=== PATIENT | female | born 1980 | race Caucasian/White ===

== ENCOUNTER 2017-07-30 10:57 | Emergency (ER) | payer MEDICARE ==
[~2017-07-30] VITALS: Ht 165.1 cm; Wt 81.7 kg
[~2017-07-30 10:57] MED LIST: ACETAMINOPHEN-1 EAC1 PO; BERINERT500 UNI1 IV; CARAFATE 1 GM TA1 GM PO; CARAFATE 11 GM/10 M1 GT; CINRYZE500 UNIT IV; CIPRO500 M1 PO; CITRATE OF MAG300 ML PO; CYCLOBENZAPRINE5 MG PO; DILAUDID1 MG/1 ML IV; FIRAZYR30 MG/3 ML SQ; FLAGYL500 MG PO; FLEXERIL PO; HYDROCODONE-AP1 EAC6 PO; IBUPROFEN 800800 MG PO; LEVAQUIN 750 M750 MG PO; MOBIC7.5 MG PO; NORCO 5-325 TA1 EAC1 PO; NORCO 5-325 TA1 EACH PO; ONDANSETRON4 MG/2 ML IV; PEPCID20 MG IVPB; PEPCID20 MG PO; PREVACID15 MG PO; ROBAXIN 750 MG750 M1 PO; ROBAXIN500 MG PO; SODIUM CHLORI1000 ML IV; UNICOMPLEX M TA1 TA1 PO; ZANTAC 150MG T150 MG PO; ZOFRAN ODT4 MG PO; [UNRECOGNIZED DRUG - OTHER] IV; [UNRECOGNIZED DRUG - OTHER] SQ
[2017-07-30 11:25] LABS: ABSOLUTE BASOPHILS 0.1 thou/uL (0.0-0.2); ABSOLUTE EOSINOPHILS 0.2 thou/uL (0.0-0.7); ABSOLUTE LYMPHOCYTES 1.8 thou/uL (0.8-5.3); ABSOLUTE MONOCYTES 0.5 thou/uL (0.0-1.2); ABSOLUTE NEUTROPHILS 4.7 thou/uL (1.6-8.1); BASOPHILS 0.8 %; EOSINOPHILS 2.7 %; HEMATOCRIT 39.3 % (37.0-47.0); HEMOGLOBIN 13.2 gm/dL (12.0-15.0); LYMPHOCYTES 25.2 %; MCH 28.5 pg (26.0-34.0); MCHC 33.6 g/dL (28.0-37.0); MCV 84.8 fL (80.0-100.0); MONOCYTES 6.9 %; MPV 8.7 fl. (7.2-11.1); NUCLEATED RBCS 0 /100WBC; PLATELET COUNT* 255 thou/uL (150-400); POLYS 64.4 %; RBC 4.64 mil/uL (4.20-5.00); WBC 7.3 thou/uL (4.0-11.0)
[2017-07-30 11:33] LABS: CALCIUM 8.3 mg/dL (8.5-10.1); CREATININE 0.7 mg/dL (0.6-1.3); POTASSIUM 3.8 mmol/L (3.5-5.1)
[2017-07-30 11:37] LABS: ALBUMIN 3.3 g/dL (3.4-5.0); TOTAL BILIRUBIN 0.3 mg/dL (<0.1-1.0); TOTAL PROTEIN 7.4 g/dL (6.4-8.2)
[2017-07-30 11:41] LABS: INFLUENZA A ANTIGEN None Detected (None Detect); INFLUENZA B ANTIGEN None Detected (None Detect)
[2017-07-30] MEDS ORDERED: ZOFRAN ODT4 MG PO (12:30)
[2017-07-30 12:53] LABS: URINE BILIRUBIN NEGATIVE (Negative); URINE BLOOD NEGATIVE (Negative); URINE CLARITY CLEAR; URINE COLOR YELLOW; URINE GLUCOSE-RANDOM NEGATIVE (Negative); URINE KETONES NEGATIVE (Negative); URINE LEUKOCYTES-REFLEX NEGATIVE (Negative); URINE NITRITE-REFLEX NEGATIVE (Negative); URINE PROTEIN NEGATIVE (Negative); URINE UROBILINOGEN 0.2 E.U./dl (0.2-1.0)
[2017-07-30 13:28] VITALS: BP 100/60
== END 2017-07-30 13:30 | disposition home or self-care (01) ==
LOC: M.ERS 10:57
PROVIDERS: Physician Assistant
DX: B34.9 Viral infection, unspecified (principal); Z90.49 Acquired absence of other specified parts of digestive tract; Z90.89 Acquired absence of other organs; Z91.041 Radiographic dye allergy status; Z88.2 Allergy status to sulfonamides; Z88.8 Allergy status to other drugs, medicaments and biological substances

== ENCOUNTER 2017-08-09 16:14 | Emergency (ER) | payer MEDICARE ==
[~2017-08-09] VITALS: Ht 165.1 cm; Wt 81.7 kg
[2017-08-09 16:41] LABS: URINE BILIRUBIN NEGATIVE (Negative); URINE BLOOD TRACE (Negative); URINE CLARITY CLEAR; URINE COLOR YELLOW; URINE GLUCOSE-RANDOM NEGATIVE (Negative); URINE KETONES TRACE (Negative); URINE LEUKOCYTES-REFLEX NEGATIVE (Negative); URINE NITRITE-REFLEX NEGATIVE (Negative); URINE PROTEIN NEGATIVE (Negative); URINE SPECIFIC GRAVITY >= 1.030 (1.005-1.030); URINE UROBILINOGEN 0.2 E.U./dl (0.2-1.0)
[2017-08-09 17:27] LABS: ABSOLUTE BASOPHILS 0.1 thou/uL (0.0-0.2); ABSOLUTE EOSINOPHILS 0.1 thou/uL (0.0-0.7); ABSOLUTE LYMPHOCYTES 2.3 thou/uL (0.8-5.3); ABSOLUTE MONOCYTES 0.5 thou/uL (0.0-1.2); ABSOLUTE NEUTROPHILS 7.2 thou/uL (1.6-8.1); BASOPHILS 0.8 %; EOSINOPHILS 0.6 %; HEMATOCRIT 38.7 % (37.0-47.0); LYMPHOCYTES 22.8 %; MCH 28.3 pg (26.0-34.0); MCHC 33.6 g/dL (28.0-37.0); MCV 84.4 fL (80.0-100.0); MONOCYTES 5.2 %; MPV 8.8 fl. (7.2-11.1); NUCLEATED RBCS 0 /100WBC; PLATELET COUNT* 259 thou/uL (150-400); POLYS 70.6 %; RBC 4.58 mil/uL (4.20-5.00); RDW-CV 13.9 % (10.5-14.5); WBC 10.2 thou/uL (4.0-11.0)
[2017-08-09 17:32] LABS: CREATININE 0.7 mg/dL (0.6-1.3)
[2017-08-09 17:33] LABS: POTASSIUM 2.9 mmol/L (3.5-5.1)
[2017-08-09 17:36] LABS: ALBUMIN 3.1 g/dL (3.4-5.0); TOTAL BILIRUBIN 0.4 mg/dL (<0.1-1.0); TOTAL PROTEIN 6.8 g/dL (6.4-8.2)
[2017-08-09] MEDS ORDERED: POTASSIUM20 PO (18:15)
[2017-08-09 18:22] VITALS: BP 114/67
== END 2017-08-09 18:22 | disposition home or self-care (01) ==
LOC: M.ERS 16:14
PROVIDERS: Physician Assistant
DX: R10.2 Pelvic and perineal pain (principal); R31.9 Hematuria, unspecified; E87.6 Hypokalemia; Z98.890 Other specified postprocedural states; Z91.040 Latex allergy status; Z88.2 Allergy status to sulfonamides; Z88.8 Allergy status to other drugs, medicaments and biological substances

== ENCOUNTER 2017-09-11 17:18 | Emergency (ER) | payer MEDICARE ==
[~2017-09-11] VITALS: Ht 165.1 cm; Wt 88.5 kg
[~2017-09-11 17:18] MED LIST changes: +POTASSIUM20 PO
[2017-09-11 18:19] LABS: URINE BILIRUBIN NEGATIVE (Negative); URINE BLOOD NEGATIVE (Negative); URINE CLARITY CLEAR; URINE COLOR YELLOW; URINE GLUCOSE-RANDOM NEGATIVE (Negative); URINE KETONES NEGATIVE (Negative); URINE LEUKOCYTES-REFLEX NEGATIVE (Negative); URINE NITRITE-REFLEX NEGATIVE (Negative); URINE PROTEIN NEGATIVE (Negative); URINE SPECIFIC GRAVITY 1.015 (1.005-1.030); URINE UROBILINOGEN 0.2 E.U./dl (0.2-1.0)
[2017-09-11] MEDS ORDERED: NORFLEX100 MG PO (18:35)
[2017-09-11] MEDS ORDERED: NAPROSYN500 MG PO (18:35)
[2017-09-11 18:50] VITALS: BP 138/73
== END 2017-09-11 18:50 | disposition home or self-care (01) ==
LOC: M.ERS 17:18
PROVIDERS: Personal Emergency Response Attendant
DX: M54.42 Lumbago with sciatica, left side (principal); M54.41 Lumbago with sciatica, right side; Z91.040 Latex allergy status; Z88.2 Allergy status to sulfonamides; Z88.8 Allergy status to other drugs, medicaments and biological substances; Z98.890 Other specified postprocedural states

== ENCOUNTER 2017-11-05 05:30 | Emergency (ER) | payer MEDICARE ==
[~2017-11-05] VITALS: Ht 162.6 cm; Wt 81.6 kg
[~2017-11-05 05:30] MED LIST changes: +NAPROSYN500 MG PO; +NORFLEX100 MG PO
[2017-11-05 06:15] LABS: CALCIUM 8.5 mg/dL (8.5-10.1); CREATININE 0.9 mg/dL (0.6-1.3); POTASSIUM 3.6 mmol/L (3.5-5.1)
[2017-11-05 06:19] LABS: ABSOLUTE EOSINOPHILS 0.1 thou/uL (0.0-0.7); ABSOLUTE LYMPHOCYTES 2.1 thou/uL (0.8-5.3); ABSOLUTE MONOCYTES 0.6 thou/uL (0.0-1.2); BASOPHILS 0.3 %; EOSINOPHILS 0.9 %; HEMATOCRIT 41.9 % (37.0-47.0); HEMOGLOBIN 13.8 gm/dL (12.0-15.0); LYMPHOCYTES 17.6 %; MCHC 32.9 g/dL (28.0-37.0); MCV 85.1 fL (80.0-100.0); MONOCYTES 4.9 %; MPV 9.1 fl. (7.2-11.1); NUCLEATED RBCS 0 /100WBC; PLATELET COUNT* 293 thou/uL (150-400); POLYS 76.3 %; RBC 4.93 mil/uL (4.20-5.00); RDW-CV 14.4 % (10.5-14.5); WBC 11.8 thou/uL (4.0-11.0)
[2017-11-05 06:25] LABS: ALBUMIN 3.2 g/dL (3.4-5.0); TOTAL BILIRUBIN 0.4 mg/dL (<0.1-1.0)
[2017-11-05 09:00] VITALS: BP 122/73
== END 2017-11-05 09:00 | disposition short-term general hospital (02) ==
LOC: M.ERS 05:30
PROVIDERS: Emergency Medicine Emergency Medical Services
DX: D84.1 Defects in the complement system (principal); R10.84 Generalized abdominal pain; E66.01 Morbid (severe) obesity due to excess calories; Z90.49 Acquired absence of other specified parts of digestive tract; Z90.89 Acquired absence of other organs; Z91.040 Latex allergy status; Z88.2 Allergy status to sulfonamides; Z88.8 Allergy status to other drugs, medicaments and biological substances; Z68.30 Body mass index [BMI] 30.0-30.9, adult

== ENCOUNTER 2018-02-26 16:17 | Emergency (ER) | payer MEDICARE ==
[~2018-02-26] VITALS: Ht 165.1 cm; Wt 81.7 kg
[2018-02-26] MEDS ORDERED: [UNRECOGNIZED DRUG - OTHER] SUBQ (16:24)
[2018-02-26 16:52] LABS: ABSOLUTE EOSINOPHILS 0.1 thou/uL (0.0-0.7); ABSOLUTE LYMPHOCYTES 1.7 thou/uL (0.8-5.3); ABSOLUTE MONOCYTES 0.5 thou/uL (0.0-1.2); ABSOLUTE NEUTROPHILS 5.5 thou/uL (1.6-8.1); BASOPHILS 0.6 %; EOSINOPHILS 1.4 %; HEMATOCRIT 41.3 % (37.0-47.0); HEMOGLOBIN 13.7 gm/dL (12.0-15.0); LYMPHOCYTES 21.4 %; MCH 28.6 pg (26.0-34.0); MCHC 33.3 g/dL (28.0-37.0); MONOCYTES 6.1 %; MPV 8.9 fl. (7.2-11.1); NUCLEATED RBCS 0 /100WBC; PLATELET COUNT* 255 thou/uL (150-400); POLYS 70.5 %; RDW-CV 14.1 % (10.5-14.5); WBC 7.9 thou/uL (4.0-11.0)
[2018-02-26 17:00] LABS: ANION GAP 7 mmol/L (7-16); BUN 9 mg/dL (7-18); CALCIUM 8.4 mg/dL (8.5-10.1); CHLORIDE 104 mmol/L (98-107); CO2 28 mmol/L (21-32); CREATININE 0.8 mg/dL (0.6-1.3); GLUCOSE 96 mg/dL (70-99); POTASSIUM 3.5 mmol/L (3.5-5.1); SODIUM 139 mmol/L (136-145)
[2018-02-26 17:10] LABS: ALBUMIN 3.5 g/dL (3.4-5.0); ALKALINE PHOSPHATASE 94 U/L (46-116); LIPASE 150 U/L (73-393); NT-PRO BRAIN NAT PEPTIDE 39 pg/mL (<300); SGOT 17 U/L (15-37); SGPT 27 U/L (30-65); TOTAL BILIRUBIN 0.3 mg/dL (<0.1-1.0); TOTAL PROTEIN 7.4 g/dL (6.4-8.2); TROPONIN-I LEVEL <0.06 ng/mL (<0.06)
[2018-02-26 17:47] LABS: URINE BILIRUBIN NEGATIVE (Negative); URINE BLOOD 1+ (Negative); URINE CLARITY CLEAR; URINE COLOR YELLOW; URINE GLUCOSE-RANDOM NEGATIVE (Negative); URINE KETONES NEGATIVE (Negative); URINE LEUKOCYTES-REFLEX NEGATIVE (Negative); URINE NITRITE-REFLEX NEGATIVE (Negative); URINE PROTEIN NEGATIVE (Negative); URINE SPECIFIC GRAVITY 1.015 (1.005-1.030); URINE UROBILINOGEN 0.2 E.U./dl (0.2-1.0)
[2018-02-26 17:56] LABS: BACTERIA-REFLEX 1-9 Few /HPF (None Seen); CASTS None Seen /LPF (None Seen); CRYSTALS None Seen /LPF (None Seen); SQUAMOUS >10 Many /LPF (0-3); URINE RBC 3-10 Few /HPF (0-2); URINE WBC-REFLEX 0-5 Rare /HPF (0-5)
[2018-02-26 18:29] VITALS: BP 114/63
--- NOTE | 2018-02-27 14:50 | EKG ---
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
== END 2018-02-26 18:30 | disposition home or self-care (01) ==
LOC: M.ERS 16:17
PROVIDERS: Emergency Medicine
DX: R07.89 Other chest pain (principal); R50.9 Fever, unspecified; R53.1 Weakness; Z90.49 Acquired absence of other specified parts of digestive tract; Z91.040 Latex allergy status; Z88.2 Allergy status to sulfonamides; Z88.8 Allergy status to other drugs, medicaments and biological substances

== ENCOUNTER 2018-05-29 07:09 | Emergency (ER) | payer OTHER, MEDICARE ==
[~2018-05-29] VITALS: Ht 165.1 cm; Wt 81.7 kg
[~2018-05-29 07:09] MED LIST changes: +[UNRECOGNIZED DRUG - OTHER] SUBQ
[2018-05-29] MEDS ORDERED: TAKHZYRO300 MG/2 M SUBQ (07:18)
[2018-05-29] MEDS ORDERED: ZPAK PO (07:33)
[2018-05-29] MEDS ORDERED: PREDNISONE 20 M20 M1 PO (07:33)
[2018-05-29 07:40] VITALS: BP 108/70
--- NOTE | 2018-05-29 15:29 | EKG ---
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
== END 2018-05-29 07:45 | disposition home or self-care (01) ==
LOC: M.ERS 07:09
DX: J40 Bronchitis, not specified as acute or chronic (principal); Z90.49 Acquired absence of other specified parts of digestive tract; Z88.2 Allergy status to sulfonamides; Z91.040 Latex allergy status

== ENCOUNTER 2019-05-24 18:12 | Emergency (ER) | payer OTHER, MEDICARE ==
[~2019-05-24] VITALS: Ht 165.1 cm; Wt 88.5 kg
[~2019-05-24 18:12] MED LIST changes: +PREDNISONE 20 M20 M1 PO; +TAKHZYRO300 MG/2 M SUBQ; +ZPAK PO
[2019-05-24] MEDS ORDERED: NORCO 5-325 TA1 EAC1 PO (18:29)
[2019-05-24] MEDS ORDERED: PENICILLIN V P500 MG PO (18:29)
[2019-05-24 19:07] VITALS: BP 128/77
== END 2019-05-24 19:10 | disposition home or self-care (01) ==
LOC: M.ERS 18:12
DX: K03.81 Cracked tooth (principal); K08.89 Other specified disorders of teeth and supporting structures; Z88.2 Allergy status to sulfonamides; Z91.040 Latex allergy status; Z88.8 Allergy status to other drugs, medicaments and biological substances; Z90.49 Acquired absence of other specified parts of digestive tract

== ENCOUNTER 2020-01-03 17:28 | Emergency (ER) | payer OTHER, MEDICARE ==
[~2020-01-03] VITALS: Ht 165.1 cm; Wt 99.8 kg
[~2020-01-03 17:28] MED LIST changes: +PENICILLIN V P500 MG PO
[2020-01-03] MEDS ORDERED: MELOXICAM15 MG PO (17:50)
[2020-01-03 18:55] LABS: URINE BILIRUBIN NEGATIVE (Negative); URINE BLOOD NEGATIVE (Negative); URINE COLOR YELLOW; URINE GLUCOSE-RANDOM NEGATIVE (Negative); URINE KETONES NEGATIVE (Negative); URINE LEUKOCYTES-REFLEX NEGATIVE (Negative); URINE PROTEIN NEGATIVE (Negative); URINE SPECIFIC GRAVITY >= 1.030 (1.005-1.030); URINE UROBILINOGEN 0.2 E.U./dl (0.2-1.0)
[2020-01-03 18:56] LABS: URINE NITRITE-REFLEX POSITIVE (Negative)
[2020-01-03 18:57] LABS: URINE CLARITY HAZY
[2020-01-03 19:02] LABS: SQUAMOUS >10 Many /LPF (0-3); URINE WBC-REFLEX 6-15 Few /HPF (0-5)
[2020-01-03 19:03] LABS: BACTERIA-REFLEX >30 Many /HPF (None Seen); CASTS None Seen /LPF (None Seen); CRYSTALS None Seen /LPF (None Seen); URINE RBC None Seen /HPF (0-2)
[2020-01-03] MEDS ORDERED: MEDROLDOSEPACK PO (19:04)
[2020-01-03] MEDS ORDERED: NAPROSYN500 MG PO (19:04)
[2020-01-03] MEDS ORDERED: LIDODERM1 EACH TRANSDERM (19:04)
[2020-01-03] MEDS ORDERED: KEFLEX500 M1 PO (19:04)
[2020-01-03] MEDS ORDERED: NORCO 5-325 TA1 EAC2 PO (19:04)
[2020-01-03 19:19] VITALS: BP 124/77
== END 2020-01-03 19:20 | disposition home or self-care (01) ==
LOC: M.ERS 17:28
PROVIDERS: Physician Assistant
DX: N39.0 Urinary tract infection, site not specified (principal); M54.5 Low back pain; Z90.49 Acquired absence of other specified parts of digestive tract; Z91.040 Latex allergy status; Z88.2 Allergy status to sulfonamides; Z88.8 Allergy status to other drugs, medicaments and biological substances

== ENCOUNTER 2020-04-23 15:56 | Emergency (ER) | payer OTHER, MEDICARE ==
[~2020-04-23] VITALS: Ht 165.1 cm; Wt 99.8 kg
[~2020-04-23 15:56] MED LIST changes: +KEFLEX500 M1 PO; +LIDODERM1 EACH TRANSDERM; +MEDROLDOSEPACK PO; +MELOXICAM15 MG PO; +NORCO 5-325 TA1 EAC2 PO
[2020-04-23 16:42] LABS: ABSOLUTE BASOPHILS 0.1 thou/uL (0.0-0.2); ABSOLUTE EOSINOPHILS 0.2 thou/uL (0.0-0.7); ABSOLUTE LYMPHOCYTES 0.6 thou/uL (0.8-5.3); ABSOLUTE MONOCYTES 0.5 thou/uL (0.0-1.2); ABSOLUTE NEUTROPHILS 5.2 thou/uL (1.6-8.1); BASOPHILS 0.8 %; EOSINOPHILS 2.7 %; HEMATOCRIT 39.7 % (37.0-47.0); HEMOGLOBIN 13.5 gm/dL (12.0-15.0); LYMPHOCYTES 9.5 %; MCH 29.4 pg (26.0-34.0); MCHC 34.1 g/dL (28.0-37.0); MCV 86.2 fL (80.0-100.0); MONOCYTES 7.5 %; MPV 7.8 fl. (7.2-11.1); NUCLEATED RBCS 0 /100WBC; PLATELET COUNT* 245 thou/uL (150-400); POLYS 79.5 %; RBC 4.61 mil/uL (4.20-5.00); RDW-CV 13.7 % (10.5-14.5); WBC 6.6 thou/uL (4.0-11.0)
[2020-04-23 16:53] LABS: CALCIUM 8.4 mg/dL (8.5-10.1); CREATININE 0.8 mg/dL (0.6-1.3); POTASSIUM 3.9 mmol/L (3.5-5.1)
[2020-04-23 16:54] LABS: INFLUENZA A ANTIGEN Negative (Negative)
[2020-04-23] MEDS ORDERED: TAMIFLU75 MG PO (17:07)
[2020-04-23 17:40] VITALS: BP 104/60
--- NOTE | 2020-04-24 15:08 | EKG ---
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 04/24/20 1507 1604 1604 Amador Cutler MD, [facility] /EPI
== END 2020-04-23 17:40 | disposition home or self-care (01) ==
LOC: M.ERS 15:56
PROVIDERS: Emergency Medicine Emergency Medical Services
DX: U07.1 COVID-19 (principal); J11.1 Influenza due to unidentified influenza virus with other respiratory manifestations; Z88.2 Allergy status to sulfonamides; Z91.040 Latex allergy status; Z90.49 Acquired absence of other specified parts of digestive tract

== ENCOUNTER 2020-07-06 19:03 | Emergency (ER) | payer OTHER, MEDICARE ==
[~2020-07-06] VITALS: Ht 165.1 cm; Wt 111.1 kg
[~2020-07-06 19:03] MED LIST changes: +TAMIFLU75 MG PO
[2020-07-06] MEDS ORDERED: [UNRECOGNIZED DRUG - OTHER] (19:40)
[2020-07-06 20:15] LABS: URINE BILIRUBIN NEGATIVE (Negative); URINE BLOOD NEGATIVE (Negative); URINE CLARITY SL CLOUDY; URINE COLOR YELLOW; URINE GLUCOSE-RANDOM NEGATIVE (Negative); URINE KETONES 2+ (Negative); URINE LEUKOCYTES-REFLEX NEGATIVE (Negative); URINE NITRITE-REFLEX NEGATIVE (Negative); URINE PROTEIN NEGATIVE (Negative); URINE UROBILINOGEN 0.2 E.U./dl (0.2-1.0)
[2020-07-06] MEDS ORDERED: NORCO 5-325 TA1 EAC2 PO (20:39)
[2020-07-06] MEDS ORDERED: MEDROLDOSEPACK PO (20:39)
[2020-07-06] MEDS ORDERED: ZANAFLEX4 MG PO (20:39)
[2020-07-06] MEDS ORDERED: IBUPROFEN 800800 M1 PO (20:39)
[2020-07-06 20:57] VITALS: BP 135/91
== END 2020-07-06 20:58 | disposition home or self-care (01) ==
LOC: M.ERS 19:03
PROVIDERS: Nurse Practitioner Family
DX: M54.42 Lumbago with sciatica, left side (principal); Z90.49 Acquired absence of other specified parts of digestive tract; Z91.040 Latex allergy status; Z88.2 Allergy status to sulfonamides; Z88.8 Allergy status to other drugs, medicaments and biological substances

== ENCOUNTER 2020-08-03 18:44 | Emergency (ER) | payer OTHER, MEDICARE ==
[~2020-08-03] VITALS: Ht 165.1 cm; Wt 113.4 kg
[~2020-08-03 18:44] MED LIST changes: +IBUPROFEN 800800 M1 PO; +ZANAFLEX4 MG PO; +[UNRECOGNIZED DRUG - OTHER]
[2020-08-03] MEDS ORDERED: SUPER THERAVIT1 EACH PO (19:09)
[2020-08-03] MEDS ORDERED: IBUPROFEN 800800 M1 PO (20:27)
[2020-08-03] MEDS ORDERED: HYDROCODON-ACE1 EAC7 PO (20:27)
[2020-08-03 20:50] VITALS: BP 115/70
== END 2020-08-03 20:51 | disposition home or self-care (01) ==
LOC: M.ERS 18:44
DX: S93.492A Sprain of other ligament of left ankle, initial encounter (principal); S93.692A Other sprain of left foot, initial encounter; S70.02XA Contusion of left hip, initial encounter; M25.562 Pain in left knee; Z90.49 Acquired absence of other specified parts of digestive tract; Z91.040 Latex allergy status; Z88.2 Allergy status to sulfonamides; Z88.8 Allergy status to other drugs, medicaments and biological substances; W10.8XXA Fall (on) (from) other stairs and steps, initial encounter; Y93.89 Activity, other specified; Y92.89 Other specified places as the place of occurrence of the external cause; Y99.8 Other external cause status

== ENCOUNTER 2021-03-05 22:57 | Emergency (ER) | payer OTHER ==
[~2021-03-05] VITALS: Ht 165.1 cm; Wt 93.0 kg
[~2021-03-05 22:57] MED LIST changes: +HYDROCODON-ACE1 EAC7 PO; +SUPER THERAVIT1 EACH PO
[2021-03-05 23:33] LABS: INFLUENZA A ANTIGEN Negative (Negative); INFLUENZA B ANTIGEN Negative (Negative)
[2021-03-05] MEDS ORDERED: ZOFRAN ODT4 MG PO (23:47)
[2021-03-05 23:58] VITALS: BP 115/60
== END 2021-03-05 23:59 | disposition home or self-care (01) ==
LOC: M.ERS 22:57
PROVIDERS: Personal Emergency Response Attendant
DX: R11.2 Nausea with vomiting, unspecified (principal); Z20.822 Contact with and (suspected) exposure to COVID-19; R19.7 Diarrhea, unspecified; R68.83 Chills (without fever); Z90.49 Acquired absence of other specified parts of digestive tract; Z98.890 Other specified postprocedural states; Z79.899 Other long term (current) drug therapy; Z91.040 Latex allergy status; Z88.2 Allergy status to sulfonamides

== ENCOUNTER 2021-08-07 20:53 | Emergency (ER) | payer BC ==
[~2021-08-07] VITALS: Ht 165.1 cm; Wt 79.4 kg
[2021-08-07 21:00] VITALS: BP 141/86
[2021-08-07] MEDS ORDERED: PREDNISONE50 MG PO (22:46)
--- NOTE | 2021-08-09 11:10 | EKG ---
[place] [address] ELECTROCARDIOGRAM REPORT Name: PURNIMAOVIDIO Viky Room: 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: : 1980 Requested By: Robyn Gonzales Order Number: [id number] MD: Amador Cutler Measurements Intervals [place] Rate: 72 P: 6 [place]: 163 QRS: -31 QRSD: 94 T: 33 QT: 396 QTc: 434 Interpretive Statements Sinus rhythm Abnormal R-wave progression, late transition Left ventricular hypertrophy Compared to ECG 04/23/2020 16:04:32 No significant changes Electronically Signed On 08-09-2021 11:10:04 PRIVACY SPECIALIST by Amador Cutler [email or web address] <ELECTRONICALLY SIGNED> By: Amador Cutler MD, [facility] 08/09/21 1110 08 08 Amador Cutler MD, [facility] /EPI
== END 2021-08-07 23:03 | disposition home or self-care (01) ==
LOC: M.ERS 20:53
DX: R05.9 Cough, unspecified (principal); Z20.822 Contact with and (suspected) exposure to COVID-19; R07.89 Other chest pain; R19.7 Diarrhea, unspecified; R11.0 Nausea; Z90.49 Acquired absence of other specified parts of digestive tract; Z79.899 Other long term (current) drug therapy; Z91.040 Latex allergy status; Z88.2 Allergy status to sulfonamides; Z88.8 Allergy status to other drugs, medicaments and biological substances